=== PATIENT | male | born 1935 | race Caucasian/White ===

== ENCOUNTER 2021-03-30 12:54 | Emergency (ER) | payer MEDICARE, OTHER ==
[~2021-03-30] VITALS: Ht 180.3 cm; Wt 75.0 kg
[~2021-03-30 12:54] MED LIST: AMLO-94 PO; ASPI-1053 PO; ATOR20TA PO; CHOL2000 PO; CYAN500T71 PO; FERR325T28 PO; thyroxine PO
[2021-03-30 13:25] VITALS: BP 137/72
== END 2021-03-30 15:35 | disposition home or self-care (01) ==
LOC: ER 12:55
DX: S93.401A Sprain of unspecified ligament of right ankle, initial encounter (principal); S40.011A Contusion of right shoulder, initial encounter; S50.01XA Contusion of right elbow, initial encounter; Z87.01 Personal history of pneumonia (recurrent); Z98.890 Other specified postprocedural states; Z85.038 Personal history of other malignant neoplasm of large intestine; Z88.1 Allergy status to other antibiotic agents; Z79.899 Other long term (current) drug therapy; Z79.82 Long term (current) use of aspirin; W01.0XXA Fall on same level from slipping, tripping and stumbling without subsequent striking against object, initial encounter; Y93.89 Activity, other specified; Y92.89 Other specified places as the place of occurrence of the external cause; Y99.8 Other external cause status
CPT/HCPCS: 73610; 99284